=== PATIENT | male | born 1975 | race Caucasian/White ===

== ENCOUNTER 2019-08-22 10:41 | Emergency (ER) | payer SELFPAY ==
[2019-08-22] MEDS ORDERED: KETOROLAC TROMETHAMINE INJ/PF 30 MG/1 ML SDV IV ONE (12:08)
[2019-08-22] MEDS ORDERED: NORMAL SALINE 1000 ML 1,000 ML IV ONE (12:08)
[2019-08-22] MEDS ORDERED: METHYLPREDNISOLONE INJ 125 MG/2 ML SDV IV ONE (12:08)
[2019-08-22 13:02] LABS: ABSOLUTE EOSINOPHILS # (AUTO) 0.3 10^3/uL (0.0-0.6); ABSOLUTE LYMPHOCYTES (AUTO) 1.3 10^3/uL (0.5-4.7); ABSOLUTE MONOCYTES (AUTO) 0.6 10^3/uL (0.1-1.4); ABSOLUTE NEUT (AUTO) 2.4 10^3/uL (1.7-8.2); BASOPHILS % (AUTO) 0.6 % (0-2); EOSINOPHILS % (AUTO) 5.7 % (0-6); HEMATOCRIT 45.5 % (37.9-51.0); HEMOGLOBIN 15.3 g/dL (13.5-17.0); LYMPHOCYTES % (AUTO) 28.5 % (13-45); MEAN CORPUSCULAR HGB CONC 33.7 g/dL (32.0-36.0); MEAN CORPUSCULAR VOLUME 89 fl (80-97); MONOCYTES % (AUTO) 12.5 % (3-13); PLATELET COUNT 186 10^3/uL (150-450); RED BLOOD COUNT 5.11 10^6/uL (4.35-5.55); RED CELL DISTRIBUTION WIDTH 13.5 % (11.5-14.0); SEGMENTED NEUTROPHILS % (AUTO) 52.7 % (42-78); TOTAL CELLS COUNTED % (AUTO) 100 %; WHITE BLOOD COUNT 4.5 10^3/uL (4.0-10.5)
[2019-08-22 13:27] LABS: ALBUMIN 4.5 g/dL (3.5-5.0); ALKALINE PHOSPHATASE 58 U/L (38-126); ANION GAP 8 (5-19); ASPARTATE AMINO TRANSFERASE 17 U/L (17-59); BILIRUBIN,DIRECT 0.1 mg/dL (0.0-0.4); BILIRUBIN,TOTAL 1.2 mg/dL (0.2-1.3); BLOOD UREA NITROGEN 13 mg/dL (7-20); CALCIUM 9.3 mg/dL (8.4-10.2); CARBON DIOXIDE 28 mmol/L (22-30); CHLORIDE 103 mmol/L (98-107); CREATINE KINASE 48 U/L (55-170); GLUCOSE 94 mg/dL (75-110); POTASSIUM 4.2 mmol/L (3.6-5.0); TOTAL PROTEIN 7.6 g/dL (6.3-8.2)
[2019-08-22 14:02] VITALS: BP 123/68
--- NOTE | 2019-08-22 19:50 | ER Document Report ---
Entered by NIC SNOW SCRIBE 08/22/19 1207 Acting as scribe for:ROSALINDA ESPINOZA MD ED General - General Chief Complaint: Pain All Over Stated Complaint: BODY PAIN, HEADACHE Time Seen by Provider: 08/22/19 11:04 Mode of Arrival: Ambulatory Information source: Patient Notes: This 44 year old male patient presents to the emergency department today with complaints of myalgias, chills, sore throat, and nausea. Patient states that he has recently been out of the [place] on [place] cruise, visiting [place]/[place]. Patient states that he had very mild generalized myalgia's after going down a water slide on a cruise. Patient also mentions that while on the cruise he was having to push a family member around in a wheelchair which he does not normally do. Patient states [place] the [place] and on that day he had a sore throat which has continued. Patient now states he has more painful body aches, chills, nausea. Patient denies a cough, congestion, or vomiting. - Related Data Allergies/Adverse Reactions: No Known Allergies Allergy (Unverified 08/22/19 13:38) Past Medical History - General Information source: Patient - Social History Smoking Status: Never Smoker Cigarette use (# per day): No Frequency of alcohol use: Rare Drug Abuse: None Occupation: [employer] Lives with: Family Family History: Reviewed & Not Pertinent - Medical History Medical History: Negative Surgical Hx: Negative Review of Systems - Review of Systems Constitutional: See HPI, Chills, Fever - subjective, reports temperatures of 99s EENT: See HPI, Throat pain. denies: Nose congestion Cardiovascular: No symptoms reported Respiratory: denies: Cough Gastrointestinal: See HPI, Nausea. denies: Vomiting Genitourinary: No symptoms reported Male Genitourinary: No symptoms reported Musculoskeletal: See HPI, Muscle pain Skin: No symptoms reported Hematologic/Lymphatic: No symptoms reported Neurological/Psychological: No symptoms reported -: Yes All other systems reviewed and negative Physical Exam - Vital signs Vitals: Temp Pulse Resp BP Pulse Ox 98.2 F 81 18 122/71 96 08/22/19 11:21 08/22/19 11:21 08/22/19 11:21 08/22/19 11:21 08/22/19 11:21 - Notes Notes: Physical Exam: General: Alert, appears well. HEENT: Normocephalic. Atraumatic. PERRL. Extraocular movements intact. Oropharynx clear. Right tonsillar pillar has small white ulceration which patient indicates is the main area of pain. Uvula is elongated and shiny but not edematous. Right TM is slightly full and slightly erythematous. Left TM is normal. Neck: Supple. Non-tender. Respiratory: No respiratory distress. Clear and equal breath sounds bilaterally. Cardiovascular: Regular rate and rhythm. Abdominal: Normal Inspection. Non-tender. No distension. Normal Bowel Sounds. Back: No gross abnormalities. Extremities: Moves all four extremities. Upper extremities: Normal inspection. Normal ROM. Lower extremities: Normal inspection. No edema. Normal ROM. Neurological: Normal cognition. AAOx4. Normal speech. Psychological: Normal affect. Normal Mood. Skin: Warm. Dry. Normal color. Course - Re-evaluation Re-evalutation: 08/22/19 13:43 Patient reports he is feeling a little better and can actually taste things now after the Toradol, fluids, and Solu-Medrol. Lab work suggests this is a viral illness though. History and physical exam are also consistent with a viral illness. - Vital Signs Vital signs: Temp Pulse Resp BP Pulse Ox 98.0 F 57 L 20 123/68 98 08/22/19 14:01 08/22/19 14:01 08/22/19 14:01 08/22/19 14:01 08/22/19 14:01 - Laboratory Result Diagrams: 08/22/19 12:40 08/22/19 12:40 Laboratory results interpreted by me: 08/22/19 12:40 Creatine Kinase 48 L Discharge - Discharge Clinical Impression: Acute viral syndrome Condition: Stable Disposition: HOME, SELF-CARE Additional Instructions: Viral Syndrome The physician has diagnosed a viral infection. Viruses not only cause "colds," but can cause many different symptoms including generalized aching, fever, headache, cough, diarrhea, nausea, vomiting, and fatigue. The treatment, for the most part, is simply relief of symptoms. This means that antibiotics are usually not given. Rest, fluids, pain medications and, occasionally, medication for the specific symptoms that are most bothersome will be prescribed. Use good handwashing to avoid passing the virus to others. Shared toys should be cleaned with disinfectant. Clean the toilets, sinks, and counter surfaces in bathrooms. Launder clothing in hot water. Contact the physician if you develop any new or unusual symptoms such as severe headache, stiff neck, high fever, chest pain, productive cough, or sh ortness of breath. You should be rechecked if you don't see marked improvement within seven to 10 days. Take the medications as prescribed. Drink plenty of fluids get plenty of rest. Take Tylenol every 4 hours and ibuprofen every 6 hours for the next 1 to 2 days. Follow-up with a local primary care provider if not improving. RETURN TO THE EMERGENCY ROOM IF ANY NEW OR WORSENING SYMPTOMS. Prescriptions: Prednisone [Deltasone 10 mg Tablet] 10 mg PO ASDIR PRN #21 tablet PRN Reason: Scribe Attestation: 08/22/19 13:12 I personally performed the services described in the documentation, reviewed and edited the documentation which was dictated to the scribe in my presence, and it accurately records my words and actions. I personally performed the services described in the documentation, reviewed and edited the documentation which was dictated to the scribe in my presence, and it accurately records my words and actions.
== END 2019-08-22 14:07 | disposition home or self-care (01) ==
LOC: ER 10:41
DX: J02.9 Acute pharyngitis, unspecified (principal); B34.9 Viral infection, unspecified; R11.0 Nausea; M79.10 Myalgia, unspecified site
CPT/HCPCS: 36415; 87040; 87070; 87880; 82550; 85025; 80053; J2930; J1885; J7030; 87077; 96361; 96374; 96375; 99283

== ENCOUNTER 2019-08-29 11:32 | Emergency (ER) | payer SELFPAY ==
[2019-08-29 11:45] VITALS: BP 141/84
--- NOTE | 2019-08-29 12:07 | ER Document Report ---
ED Medical Screen (RME) - General Chief Complaint: Flu Symptoms Stated Complaint: FLU LIKE SYMPTOMS Time Seen by Provider: 08/29/19 12:01 Mode of Arrival: Ambulatory Information source: Patient Notes: 44-year-old male presented to ED for continued body aches, weakness, headache and neck ache. No sore throat. He was seen here last week and seen by Dr. Gotti who did blood work blood cultures strep test of throat cultures and everything was negative at that time. He states she is still not feeling any better and would like to be reexamined. Patient is alert oriented respirations regular nonlabored speaking in full sentences he is afebrile at this time. States he does not smoke drinks socially denies any use of illicit drugs except for marijuana. Has any past medical history. She has been out of work for a while and cannot go to back to work the way he feels. I have greeted and performed a rapid initial assessment of this patient. A comprehensive ED assessment and evaluation of the patient, analysis of test results and completion of medical decision making process will be conducted by an additional ED providers. TRAVEL OUTSIDE OF THE [place] IN LAST 30 DAYS: No - Related Data Allergies/Adverse Reactions: No Known Allergies Allergy (Unverified 08/22/19 13:38) Physical Exam - Vital signs Vitals: Temp Pulse Resp BP Pulse Ox 98.3 F 86 16 141/84 H 98 08/29/19 11:44 08/29/19 11:44 08/29/19 11:44 08/29/19 11:44 08/29/19 11:44 Course - Vital Signs Vital signs: Temp Pulse Resp BP Pulse Ox 98.3 F 86 16 141/84 H 98 08/29/19 11:44 08/29/19 11:44 08/29/19 11:44 08/29/19 11:44 08/29/19 11:44
[2019-08-29 12:57] LABS: ABSOLUTE EOSINOPHILS # (AUTO) 0.1 10^3/uL (0.0-0.6); ABSOLUTE LYMPHOCYTES (AUTO) 1.8 10^3/uL (0.5-4.7); ABSOLUTE MONOCYTES (AUTO) 0.9 10^3/uL (0.1-1.4); ABSOLUTE NEUT (AUTO) 5.3 10^3/uL (1.7-8.2); BASOPHILS % (AUTO) 0.4 % (0-2); EOSINOPHILS % (AUTO) 1.4 % (0-6); HEMOGLOBIN 15.1 g/dL (13.5-17.0); LYMPHOCYTES % (AUTO) 21.9 % (13-45); MEAN CORPUSCULAR HEMOGLOBIN 30.3 pg (27.0-33.4); MEAN CORPUSCULAR HGB CONC 34.4 g/dL (32.0-36.0); MEAN CORPUSCULAR VOLUME 88 fl (80-97); MONOCYTES % (AUTO) 11.4 % (3-13); PLATELET COUNT 228 10^3/uL (150-450); RED CELL DISTRIBUTION WIDTH 13.5 % (11.5-14.0); SEGMENTED NEUTROPHILS % (AUTO) 64.9 % (42-78); TOTAL CELLS COUNTED % (AUTO) 100 %; WHITE BLOOD COUNT 8.2 10^3/uL (4.0-10.5)
[2019-08-29 13:00] LABS: APPEARANCE,URINE CLEAR; BILIRUBIN,URINE NEGATIVE (NEGATIVE); COLOR,URINE YELLOW; GLUCOSE, URINE NEGATIVE (NEGATIVE); KETONES,URINE NEGATIVE (NEGATIVE); PROTEIN,URINE NEGATIVE (NEGATIVE); UROBILINOGEN,URINE NEGATIVE mg/dL (<2.0)
[2019-08-29 13:13] LABS: A TYPE INFLUENZA AG NEGATIVE (NEGATIVE); B INFLUENZA AG NEGATIVE (NEGATIVE)
[2019-08-29 13:25] LABS: ALBUMIN 4.2 g/dL (3.5-5.0); ALKALINE PHOSPHATASE 63 U/L (38-126); ANION GAP 10 (5-19); ASPARTATE AMINO TRANSFERASE 16 U/L (17-59); BILIRUBIN,TOTAL 1.5 mg/dL (0.2-1.3); BLOOD UREA NITROGEN 15 mg/dL (7-20); CALCIUM 9.5 mg/dL (8.4-10.2); CARBON DIOXIDE 28 mmol/L (22-30); CHLORIDE 102 mmol/L (98-107); GLUCOSE 100 mg/dL (75-110); POTASSIUM 4.3 mmol/L (3.6-5.0)
--- NOTE | 2019-08-29 16:47 | ER Document Report ---
ED Flu Like - General Chief Complaint: Headache Stated Complaint: FLU LIKE SYMPTOMS Time Seen by Provider: 08/29/19 12:01 Mode of Arrival: Ambulatory Information source: Patient TRAVEL OUTSIDE OF THE [place] IN LAST 30 DAYS: No - HPI Notes: Patient presents with flulike symptoms. He states he has had sore throat body aches malaise and weakness for a little over 1 week. He states he felt this started after going on a cruise and [place] in [place]. He states that he was seen here approximate 1 week ago and was given some steroids but no antibiotics. He states that he feels no different except he feels that the sore throat may be improving. Patient had no vomiting or diarrhea. He has had some subjective fever and chills. No rashes. No known tick bites. He states he has generalized body aches. They are made worse with exertion and better with rest. They radiate throughout his body. They are moderate in a intensity. They have been constant. - Related Data Allergies/Adverse Reactions: No Known Allergies Allergy (Unverified 08/22/19 13:38) Past Medical History - General Information source: Patient - Social History Smoking Status: Current Every Day Smoker Frequency of alcohol use: None Drug Abuse: None Family History: Reviewed & Not Pertinent Patient has suicidal ideation: No Patient has homicidal ideation: No Review of Systems - Review of Systems Constitutional: Chills, Fever, Weakness Cardiovascular: denies: Chest pain, Palpitations Respiratory: denies: Cough, Short of breath -: Yes All other systems reviewed and negative Physical Exam - Vital signs Vitals: Temp Pulse Resp BP Pulse Ox 98.3 F 86 16 141/84 H 98 08/29/19 11:44 08/29/19 11:44 08/29/19 11:44 08/29/19 11:44 08/29/19 11:44 Interpretation: Normal - General General appearance: Appears well, Alert - HEENT Head: Normocephalic, Atraumatic Eyes: Normal Pupils: PERRL - Respiratory Respiratory status: No respiratory distress Chest status: Nontender Breath sounds: Normal Chest palpation: Normal - Cardiovascular Rhythm: Regular Heart sounds: Normal auscultation Murmur: No - Abdominal Inspection: Normal Distension: No distension Bowel sounds: Normal Tenderness: Nontender Organomegaly: No organomegaly - Back Back: Normal, Nontender - Extremities General upper extremity: Normal inspection, Nontender, Normal color, Normal ROM, Normal temperature General lower extremity: Normal inspection, Nontender, Normal color, Normal ROM, Normal temperature, Normal weight bearing. No: Elva's sign - Neurological Neuro grossly intact: Yes Cognition: Normal Orientation: AAOx4 Thrall Coma Scale Eye Opening: Spontaneous Leo Coma Scale Verbal: Oriented Leo Coma Scale Motor: Obeys Commands Thrall Coma Scale Total: 15 Speech: Normal Motor strength normal: LUE, RUE, LLE, RLE Sensory: Normal - Psychological Associated symptoms: Normal affect, Normal mood - Skin Skin Temperature: Warm Skin Moisture: Dry Skin Color: Normal Course - Re-evaluation Re-evalutation: 08/29/19 16:44 Patient presents with viral-like symptoms. His culture from approximate week ago is positive for strep. I will treat him with antibiotics. Some of the patient's symptoms are also consistent with a Monroe spotted fever. Therefore patient was started on doxycycline to cover both and a Monroe spotted fever will be sent off. - Vital Signs Vital signs: Temp Pulse Resp BP Pulse Ox 98.3 F 86 16 141/84 H 98 08/29/19 11:44 08/29/19 11:44 08/29/19 11:44 08/29/19 11:44 08/29/19 11:44 - Laboratory Result Diagrams: 08/29/19 12:34 08/29/19 12:34 Laboratory results interpreted by me: 08/29/19 08/29/19 12:34 12:34 Total Bilirubin 1.5 H AST 16 L Leukocyte Esterase Rfl TRACE H Discharge - Discharge Clinical Impression: Strep pharyngitis Condition: Stable Disposition: HOME, SELF-CARE Instructions: Strep Throat ([facility]) Additional Instructions: Please follow-up with your family doctor this week for reevaluation. Prescriptions: Doxycycline Hyclate 100 mg PO BID #14 capsule Tramadol HCl [Ultram] 50 mg PO Q6 PRN 3 Days #12 tablet PRN Reason: Forms: Return to Work
== END 2019-08-29 16:58 | disposition home or self-care (01) ==
LOC: ER 11:32
DX: J02.0 Streptococcal pharyngitis (principal); R53.81 Other malaise; R53.1 Weakness; R50.9 Fever, unspecified; F17.200 Nicotine dependence, unspecified, uncomplicated
CPT/HCPCS: 36415; 80053; 81001; 83690; 85025; 87086; 87804; 99283